=== PATIENT | male | born 1955 | race Asian ===

== ENCOUNTER 2020-06-02 09:17 | Emergency (ER) | payer OTHER, MEDICAID ==
[2020-06-02 09:53] LABS: BASOPHIL % 0.1 % (0-2); PLATELET COUNT 253 x10^3mcL (130-400)
[2020-06-02 10:13] LABS: CALCIUM 9.7 mg/dL (8.5-10.1); CARBON DIOXIDE 26.2 mmol/L (21-32); CHLORIDE SERUM 91 mmol/L (98-107); CREATININE SERUM 0.6 mg/dL (0.7-1.3); GFR1 > 60 mL/min; GLUCOSE SERUM 201 mg/dL (74-106); POTASSIUM SERUM 4.1 mmol/L (3.5-5.1); SODIUM SERUM 126 mmol/L (136-145)
[2020-06-02 10:14] LABS: ALKALINE PHOSPHATASE 90 U/L (46-116); ALT/SGPT 17 U/L (16-63); AST/SGOT 16 U/L (15-37); BILIRUBIN TOTAL 0.39 mg/dL (0.20-1.00)
[2020-06-02 10:16] LABS: ALBUMIN 3.1 g/dL (3.4-5.0); TOTAL PROTEIN, SERUM 8.7 g/dL (6.4-8.2)
[2020-06-02 10:30] LABS: RED CELL DISTRIBUTION WIDTH 16.3 % (11.5-14.5)
[2020-06-02 12:35] VITALS: BP 120/88
== END 2020-06-02 12:06 | disposition short-term general hospital (02) ==
LOC: ED 09:17
PROVIDERS: Student in an Organized Health Care Education/Training Program
DX: J95.01 Hemorrhage from tracheostomy stoma (principal); J39.8 Other specified diseases of upper respiratory tract; Z85.89 Personal history of malignant neoplasm of other organs and systems
CPT/HCPCS: J7030; Q0092